=== PATIENT | male | born 1945 | race Caucasian/White ===

== ENCOUNTER 2018-03-01 11:20 | Day surgery (SDC) | payer MEDICARE, OTHER, SELFPAY ==
--- NOTE | 2018-03-01 | PATH_ITS ---
[facility] Accession Number: [id number] . 01 Material submitted: . PART A: GASTRIC POLYP PART B: GE JUNCTION NODULE PART C: PROXIMAL AND MID-ESOPHAGEAL BIOPSY . 01 Clinical history: . C (3): RULE OUT EOE . 02 Diagnosis: A. Stomach, Polyp, Biopsy: Gastric fundic gland polyp. No evidence of Helicobacter on H/E stain. Negative for intestinal metaplasia. Negative for dysplasia and malignancy. . B. Gastroesophageal Junction, Nodule: Squamocolumnar junctional mucosa with foveolar hyperplasia, consistent with hyperplastic polyp. Negative for intestinal metaplasia. Negative for dysplasia and malignancy. . C. Proximal and Mid Esophagus, Biopsies: Squamous mucosa with increased intraepithelial eosinophils (greater than 50 [id number] field). Please see comment. Columnar mucosa, negative for intestinal metaplasia. Negative for dysplasia and malignancy. MR/03/02/2018 . 02 Comment: Part C: In the proper clinical setting, the histopathologic appearance would support a clinical impression of eosinophilic esophagitis. The differential diagnosis includes drug reaction, gastroesophageal reflux, and food allergies. . 02 Electronically signed: . Leila Ann MD, Pathologist NPI- [id number] . 01 Gross description: . Received three formalin-filled containers, each labeled with the patient's name: . A. In a container labeled 1. Gastric polyp, the specimen consists of a 0.2 cm portion of tissue, entirely submitted in cassette A. B. In a container labeled GE junction nodule, the specimen consists of a 0.1 cm portion of tissue, entirely submitted in cassette B. C. In a container labeled proximal and mid esophageal, the specimen consists of multiple less than 0.1 cm to 0.1 cm portions of tissue, which are filtered, wrapped, and entirely submitted in cassette C. ([id number]) /FRR . 02 Pathologist provided ICD-10: K20.0 . 02 CPT . 680140, 413203, [id number] Performed at: 01 [facility] [address] [address], [place], [place] [id number] MD Justo Swenson MD Phone: [phone] Performed at: 02 [facility] [address] [place] [id number] MD Isaac Ferrara MD Phone: [phone]
--- NOTE | 2018-03-01 11:48 | PM.HP.1 ---
History of Present Illness Date Patient Seen: 03/01/18 Chief complaint: egd [id number] dialation [id number] Narrative: The patient is a 73-year-old male who was recently seen at our clinic on 02/17/2018 due to chronic intermittent solid food dysphagia for the past 10 years. He has had prior episodes of near food bolus impaction. Meds Home Medications Medication Instructions Recorded Confirmed Type glipizide 5 mg PO BID 03/01/18 03/01/18 History lisinopril 10 mg PO DAILY 03/01/18 03/01/18 History metformin 1,000 mg PO BID 03/01/18 03/01/18 History simvastatin 40 mg PO QPM 03/01/18 03/01/18 History sitagliptin [Januvia] 100 mg PO DAILY 03/01/18 03/01/18 History Allergies Allergy/AdvReac Type Severity Reaction Status Date / Time No Known Drug Allergies Allergy Verified 03/01/18 11:41 Review of Systems Review of Systems All systems reviewed & are unremarkable except as noted in HPI and below Exam Narrative Exam Narrative: General: Patient is overweight, not in apparent distress Cardiovascular: Regular rate and rhythm, no murmurs, rubs, or gallops; no evidence of edema; no palpable abdominal aortic aneurysm Gastrointestinal: Normoactive bowel sounds, soft, nontender, nondistended, no rebound tenderness, no hepatosplenomegaly, no evidence of hernia Assessment & Plan Plan: Assessment/Plan Narrative: 73-year-old male with long-standing esophageal dysphagia to solids. Differential diagnosis includes esophageal stricture, Schatzki ring, eosinophilic esophagitis, esophageal cancer, or esophageal dysmotility. Plan is for EGD with possible dilation versus biopsies Regarding the procedure(s), the risks and potential complications, benefits, and alternatives (including not doing the procedure) were discussed with the patient. The risks include but are not limited to bleeding, infection, perforation which may require surgical intervention, missed lesions, and adverse reactions to sedative medicines. After a question and answer period, the patient agreed to proceed with the procedure(s) and gives informed consent.
[2018-03-01 11:58] VITALS: BP 151/81; PULSE 78; RESP 16; TEMP 36; O2SAT 100; BMI 31.0
[2018-03-01] MEDS: SODIUM CHLORIDE 0.9% 1,000 ML 70 ML IV (12:05)
--- NOTE | 2018-03-01 12:59 | PM.OP.ENDO ---
Operative Date/Time/Diagnoses Date of procedure: 03/01/18 Procedure Notes Procedure in detail: Surgeon: Julián Mills MD Procedure: Esophagogastroduodenoscopy with biopsy Preoperative diagnosis: Esophageal dysphagia Postoperative diagnosis: Gastroesophageal junction nodule, gastric polyps; No evidence of esophageal stricture, ring, or mass Medications: Conscious sedation using 4 mg IV of Midazolam and 100 mcg IV of Fentanyl; Cetacaine spray Preanesthesia Assessment An H and P was performed/updated and the Px?s ASA class is 2. The procedure was discussed in detail with the patient. The potential risks and complications including infection, bleeding, missed lesions, perforation, need for surgery in case of perforation, prolonged hospital stay, and were explained. A brief question and answer period was allotted and once all questions were answered, informed consent was obtained. The patient was brought back to the procedure room and placed on standard monitoring. The patient?s vital signs were monitored continuously throughout the entire procedure. Prior to starting, a timeout was performed to confirm the patient?s identity, allergies, medications, and procedure. Procedure in detail The patient was placed in left lateral decubitus position and a bite block was inserted. Once adequate sedation was achieved the tip of the upper endoscope was placed in the mouth and advanced under direct visualization without difficulty into the esophagus. Careful examination of the esophagus revealed no evidence of stricture or mass. Biopsies were obtained from the mid and proximal esophagus to rule out eosinophilic esophagitis. Near the gastroesophageal junction there was note of mild nodularity and this was biopsied. There was otherwise no evidence of a Schatzki's ring. The stomach was intubated and there was note of multiple gastric polyps measuring 3-5 mm. A entry level marketing representative biopsy was obtained for pathology. The upper endoscope was then advanced all the way to the 2nd portion of the duodenum and visualized duodenal mucosa showed no abnormality. Repeat examination of the esophagus while withdrawing the scope was performed and again no mucosal abnormality was visualized. The patient tolerated the procedure well and will be brought back to the recovery area to be discharged once criteria are met. The total procedure time from initial sedation was 10 min. Complications There were no complications and estimated blood loss was minimal. Recommendations: Strict chopped diet indefinitely to avoid food impaction Continue outPx medications Consider H2 belén therapy (ranitidine 150 mg twice daily) if with reflux-type symptoms Follow up pathology results Office follow up with Dr. Chatterjee at an appointment to be scheduled (please call our office) An emergency contact number was given to the patient for any complications related to the procedure
[2018-03-01] MEDS: LIDOCAINE 4% SOLN 50 ML 20 ML TOP (13:12)
[2018-03-01] MEDS: TETRACAINE/BENZOCAINE/BUTAMBEN (CETACAINE) BOTTLE 1 SPRAY TOP (13:14)
[2018-03-01] MEDS: fentaNYL 250 MCG/5 ML INJ IV (13:22)
[2018-03-01] MEDS: MIDAZOLAM 5 MG/5 ML VIAL IV (13:23)
--- NOTE | 2018-03-01 13:27 | PM.DS.1 ---
History of Present Illness Chief complaint: egd [id number] dialation [id number] Narrative: The patient is a 73-year-old male who was recently seen at our clinic on 02/17/2018 due to chronic intermittent solid food dysphagia for the past 10 years. He has had prior episodes of near food bolus impaction. Discharge Providers Primary care physician: Richard Anna MD Discharge provider: Julián Mills MD Exam Vital Signs (past 8 hours): - 03/01/18 11:58 Temperature 96.8 F L Pulse Rate 78 Respiratory Rate 16 Blood Pressure 151/81 H Pulse Oximetry 100 Oxygen Delivery Method Room Air Narrative Exam Narrative: General: Patient is overweight, not in apparent distress Cardiovascular: Regular rate and rhythm, no murmurs, rubs, or gallops; no evidence of edema; no palpable abdominal aortic aneurysm Gastrointestinal: Normoactive bowel sounds, soft, nontender, nondistended, no rebound tenderness, no hepatosplenomegaly, no evidence of hernia Discharge Plan Discharge Plan Patient Disposition: Home, Self-Care Discharge Med Rec/Prescriptions Prescriptions: Continue simvastatin 40 mg Tablet 40 mg PO QPM RF: 0 metformin 1,000 mg Tablet 1,000 mg PO BID RF: 0 lisinopril 10 mg Tablet 10 mg PO DAILY RF: 0 glipizide 5 mg Tablet 5 mg PO BID RF: 0 sitagliptin [Januvia] 100 mg Tablet 100 mg PO DAILY RF: 0 Discharge Orders: Discharge (Order); Ordered 03/01/18 Ordered By: Julián Mills Provider Discharge Instructions Diet: Diet as Tolerated Diet comment: Strict chopped diet Visit Report/Discharge Packet Stand Alone Forms: Surgery Discharge Discharge Data Primary Care Provider: Richard Anna Attending Provider: Julián Mills
[2018-03-01 13:29] VITALS: BP 137/89; PULSE 57; RESP 15; TEMP 36.8; O2SAT 98
== END 2018-03-01 13:49 | disposition home or self-care (01) ==
PROVIDERS: PCP Internal Medicine; Visit Provider Internal Medicine Gastroenterology
PROC: 0DJ08ZZ Inspection of Upper Intestinal Tract, Via Natural or Artificial Opening Endoscopic (ICD-10-PCS; CPT 43235; principal; 2018-03-01 12:30)
DX: K20.0 Eosinophilic esophagitis (principal); K31.7 Polyp of stomach and duodenum
CPT/HCPCS: 43239; 88305; J2250; J3010

== ENCOUNTER → 2025-07-10 08:58 | Outpatient (CLI) | payer MEDICARE, OTHER, SELFPAY ==
--- NOTE | 2025-07-10 09:00 | DI.ECHO.S_ITS ---
[facility]+ [facility] : : [address] : [place] : : [id number] : : Phone: [phone] Echocardiogram Report + + :Name: EARL VASQUEZ Study Date: 07/10/2025 Height: 69 in : :Hospital ReadingLocation: Weight: 208 lb : : Gender: Male BSA: 2.1 m2 : :: 1945 Age: 80 yrs BP: 150/78 mmHg: :Reason For Study: Valve stenosis : :Ordering Physician: RENAN, : :MACIEL Performed By: Prashant Martinez : :Referring: MACIEL BATES : + + Interpretation Summary The left ventricle is normal in size. The left ventricle is hyperdynamic. The ejection fraction is estimated to be 70-75%. There are no focal wall motion abnormalities. Grade I diastolic dysfunction with normal left atrial pressure. The right ventricle is normal in size, thickness and function. Pulmonary artery pressures cannot be estimated because of the lack of a measurable TR jet velocity but the IVC suggests a CVP of around 3 mmHg. The left atrial size is normal. Thickening of the posterior mitral valve leaflet with restricted mobility. There is moderate aortic stenosis. The calculated aortic valve area is 1.2 cm2. The peak aortic velocity is 3.7 m/sec. The aortic root is normal size. Procedure: A two-dimensional transthoracic echocardiogram with color flow and Doppler was performed. The study quality was technically adequate. A contrast injection of Definity was performed to improve assessment of LV function. The patient had an echocardiogram, but there is no comparison study available. The patient was in normal sinus rhythm during the exam. Left Ventricle: The left ventricle is normal in size. Left ventricular wall thickness is mildly increased. The left ventricle is hyperdynamic. The ejection fraction is estimated to be 70-75%. There are no focal wall motion abnormalities. Grade I diastolic dysfunction with normal left atrial pressure. Right Ventricle: The right ventricle is normal in size, thickness and function. Atria: The left atrial size is normal. Right atrial size is normal. There is no Doppler evidence for an interatrial shunt. Mitral Valve: There is mild mitral annular calcification. Thickening of the posterior mitral valve leaflet with restricted mobility. MV meanPG 2.58 mmHG at a heart rate of 79 BPM. There is trace mitral regurgitation. Aortic Valve: The aortic valve is trileaflet. Heavy calcification of the aortic valve leaflets with restricted mobility of the right and non coronary cusps. There is moderate aortic stenosis. The calculated aortic valve area is 1.2 cm2. The peak aortic velocity is 3.7 m/sec. The aortic valve mean gradient is 30.9 mmHg. sev ratio: 0.34. There is trace aortic regurgitation. Tricuspid Valve: The tricuspid valve is not well visualized, but is grossly normal. There is trace tricuspid regurgitation. Pulmonary artery pressures cannot be estimated because of the lack of a measurable TR jet velocity but the IVC suggests a CVP of around 3 mmHg. Pulmonic Valve: The pulmonic valve is not well seen, but is grossly normal. There is trace pulmonic regurgitation. Great Vessels: The aortic root is normal size. There is aortic root sclerosis/calcification. The ascending aorta is normal in size. The aortic arch could not be visualized. The pulmonary artery is normal size. The IVC is of normal diameter and collapses greater than 50% with a sniff. This suggests a low right atrial pressure of 3 mm Hg. Pericardium/ Pleura There is no pericardial effusion. MMode/2D Measurements & Calculations LVIDd: 4.4 cm LVOT diam: 2.2 cm LVIDs: 2.8 cm Ao root diam: 3.4 cm FS: 35.6 % asc Aorta Diam: 3.4 cm IVSd: 1.2 cm LVPWd: 1.2 cm LV avila. diameter/BSA (cm/m^2): 2.1 LV sys. diameter/BSA (cm/m^2): 1.3 LA A2 area: 17.0 cm2 RA long axis: 4.6 cm LA A4 area: 15.2 cm2 RA area: 11.2 cm2 LA length (vol): 5.1 cm RA vol: 23.1 ml LA vol: 42.7 ml RA : 11.0 ml/m2 LA vol index: 20.3 ml/m2 IVC diam: 1.2 cm RVD1 (basal): 3.1 cm RVD2 (mid): 2.8 cm TAPSE: 2.0 cm Doppler Measurements & Calculations Ao V2 max: 366.7 cm/sec LVOT Max Hawk: 113.9 cm/sec Ao V2 mean: 262.8 cm/sec LV V1 max P.2 mmHg Ao max P.8 mmHg LV V1 VTI: 21.6 cm Ao mean P.9 mmHg RADHA(I,D): 1.3 cm2 Ao V2 VTI: 63.8 cm RADHA(V,D): 1.2 cm2 sev ratio: 0.34 RADHA indexed to BSA (cm^2/m^2): 0.62 MV E max hawk: 75.2 cm/sec PA V2 max: 126.7 cm/sec MV A max hawk: 114.1 cm/sec PA V2 mean: 87.3 cm/sec MV E/A: 0.66 PA mean P.4 mmHg Med Peak E' Hawk: 6.6 cm/sec PA pr(Accel): 34.0 mmHg E/E' med: 11.5 Lat Peak E' Hawk: 5.6 cm/sec E/E' lat: 13.5 E/e' average: 12.5 MV dec time: 0.27 sec MVA(VTI): 2.7 cm2 MV V2 mean: 77.5 cm/sec SV(LVOT): 83.7 ml MV mean P.6 mmHg MV V2 VTI: 31.2 cm Qp/Qs (V,Ao): 1.0/7.0 Qp/Qs (V,LVOT): 1.1/1.0 Reading Physician:09:41 PM
== END ==
LOC: ECHO 09:00
PROVIDERS: PCP Internal Medicine; Referring Provider Internal Medicine Cardiovascular Disease; Visit Provider Internal Medicine Cardiovascular Disease
DX: I35.0 Nonrheumatic aortic (valve) stenosis (principal); I34.81 Nonrheumatic mitral (valve) annulus calcification
CPT/HCPCS: 93306; Q9957